=== PATIENT | female | born 1985 | race Two or more races ===

== ENCOUNTER 2021-03-11 16:23 | Emergency (ER) | payer MEDICAID, OTHER ==
[2021-03-11] MEDS ORDERED: Sodium Chloride 0.9% 10 ML Syringe FLUSH PRN (16:48)
[2021-03-11] MEDS ORDERED: HYDROmorphone 1 MG/ML Syringe IVPUSH ONE (16:57)
[2021-03-11] MEDS ORDERED: Potassium Chloride 20 MEQ Tab.ER PO ONE (17:20)
[2021-03-11] MEDS ORDERED: Magnesium Sulfate/Water 2 GM in Premix Bag 1 BAG IV ONE (17:20)
[2021-03-11] MEDS: Potassium Chloride 10 MEQ in Premix Bag 1 BAG IV SCH ×4 (17:41→22:18)
--- NOTE | 2021-03-11 17:47 | EDM.PDOC ---
ED HPI GENERAL MEDICAL PROBLEM - General Chief Complaint: General Stated Complaint: LOW POTASSIUM Time Seen by Provider: 03/11/21 16:27 Source of Information: Reports: Patient, Provider History Limitations: Reports: No Limitations - History of Present Illness INITIAL COMMENTS - FREE TEXT/NARRATIVE: The patient was sent over from [facility] by Dr Olivares for low potassium. The patient was seeing Dr Olivares for a paracentesis. He took off about 4L until he found out what that her potassium was low at 2. He sent her over to get potassium. The patient is in renal failure from alcohol abuse. She still drinks daily but not as much. She says she has been hospitalized many times in the past few months. Her potassium was as low at 1.2 before. She has no fever, chills, cough, chest pain, shortness of breath, abdominal pain, nausea or vomiting. Onset: Gradual Duration: Day(s): Severity: Moderate Improves with: Reports: None Worsens with: Reports: None Associated Symptoms: Reports: No Other Symptoms Generalized Pain Score (Numeric/FACES): 7 - Related Data Allergies Allergy/AdvReac Type Severity Reaction Status Date / Time No Known Allergies Allergy Verified 03/11/21 16:48 Home Meds: Home Meds Gabapentin [Neurontin] 600 mg PO QID 03/11/21 [History] Metoprolol Succinate [[place] Sprinkle] 25 mg PO DAILY 03/11/21 [History] Potassium Chloride 20 meq PO DAILY #30 tablet.er 03/11/21 [Rx] oxyCODONE HCl/Acetaminophen [Percocet 5-325 mg Tablet] 1 each PO Q6H PRN 03/11/21 [History] Social & Family History - Tobacco Use Tobacco Use Status *Q: Never Tobacco User Second Hand Smoke Exposure: No - Alcohol Use Days Per Week of Alcohol Use: 7 Number of Drinks Per Day: 1 Total Drinks Per Week: 7 Date of Last Drink: 03/10/21 - Recreational Drug Use Recreational Drug Use: Yes Drug Use in Last 12 Months: Yes Recreational Drug Type: Reports: Marijuana/Hashish, Methamphetamine Recreational Drug Use Frequency: Daily ED ROS GENERAL - Review of Systems Review Of Systems: See Below Constitutional: Reports: No Symptoms HEENT: Reports: No Symptoms Respiratory: Reports: No Symptoms Cardiovascular: Reports: No Symptoms Endocrine: Reports: No Symptoms GI/Abdominal: Reports: No Symptoms : Reports: No Symptoms Musculoskeletal: Reports: No Symptoms ED EXAM, GENERAL - Physical Exam Exam: See Below Exam Limited By: No Limitations General Appearance: Alert, No Apparent Distress Ears: Normal External Exam Nose: Normal Inspection Head: Atraumatic, Normocephalic Neck: Normal Inspection Respiratory/Chest: No Respiratory Distress, Lungs Clear, Normal Breath Sounds Cardiovascular: Regular Rate, Rhythm, No Edema, No Murmur GI/Abdominal: Soft, Non-Tender, No Organomegaly, No Mass Back Exam: Normal Inspection Extremities: Normal Inspection Neurological: Alert, Oriented, No Motor/Sensory Deficits #1 Interpretation EKG Date: 03/11/21 Time: 17:12 Rhythm: NSR Rate (Beats/Min): 96 [place] Path: Normal P-Wave: Present QRS: Normal ST-T: Other (Flattened T waves in multiple leads) QT: Prolonged Course - Vital Signs Last Recorded V/S: Last Vital Signs Temp 97 F 03/11/21 16:41 Pulse 102 H 03/11/21 16:41 Resp 16 03/11/21 16:41 BP 120/70 03/11/21 16:41 Pulse Ox 100 03/11/21 16:41 - Orders/Labs/Meds Orders: Active Orders 24 hr Category Date Time Status Cardiac Monitoring [RC] . DIRECTED Care 03/11/21 16:48 Active Peripheral IV Care [RC] . DIRECTED Care 03/11/21 16:49 Active Potassium Chloride [KCl in Water 10 MEQ/100 ML] 10 meq Med 03/11/21 17:30 Active Premix Bag 1 bag IV Q1H Sodium Chloride 0.9% [Saline Flush] Med 03/11/21 16:48 Active 10 ml FLUSH ASDIRECTED PRN Peripheral IV Insertion Adult [OM.PC] Stat Oth 03/11/21 16:48 Ordered Medication Orders Potassium Chloride 10 meq/ (Premix) 100 mls @ 100 mls/hr IV Q1H MONAE Stop: 03/11/21 21:29 Last Admin: 03/11/21 18:43 Dose: 100 mls/hr Documented by: Infusion: 03/11/21 18:41 Dose: 100 mls/hr Documented by: Admin: 03/11/21 17:41 Dose: 100 mls/hr Documented by: ANURAG Sodium Chloride (Sodium Chloride 0.9% 10 Ml Syringe) 10 ml FLUSH ASDIRECTED PRN PRN Reason: Keep Vein Open Last Admin: 03/11/21 17:40 Dose: 10 ml Documented by: ANURAG Labs: Laboratory Tests 03/11/21 03/11/21 Range/Units 16:44 16:48 WBC 15.24 H (3.98-10.04) K/mm3 RBC 3.16 L (3.98-5.22) M/mm3 Hgb 9.8 L (11.2-15.7) gm/dl Hct 30.8 L (34.1-44.9) % MCV 97.5 H (79.4-94.8) fl MCH 31.0 (25.6-32.2) pg MCHC 31.8 L (32.2-35.5) g/dl RDW Std Deviation 65.7 H (36.4-46.3) fL Plt Count 223 (182-369) K/mm3 MPV 10.7 (9.4-12.3) fl Neut % (Auto) 73.6 H (34.0-71.1) % Lymph % (Auto) 17.5 L (19.3-51.7) % [place] % (Auto) 7.5 (4.7-12.5) % Eos % (Auto) 0.7 (0.7-5.8) Baso % (Auto) 0.4 (0.1-1.2) % Neut # (Auto) 11.22 H (1.56-6.13) K/mm3 Lymph # (Auto) 2.66 (1.18-3.74) K/mm3 [place] # (Auto) 1.15 H (0.24-0.36) K/mm3 Eos # (Auto) 0.11 (0.04-0.36) K/mm3 Baso # (Auto) 0.06 (0.01-0.08) K/mm3 Manual Slide Review Abnormal smear Sodium 142 (136-145) mEq/L Potassium 1.9 L* (3.5-5.1) mEq/L Chloride 103 (98-107) mEq/L Carbon Dioxide 29 (21-32) mEq/L Anion Gap 11.9 (5-15) BUN 4 L (7-18) mg/dL Creatinine 1.3 H (0.55-1.02) mg/dL Est Cr Clr Drug Dosing 64.07 mL/min Estimated GFR (MDRD) 46 (>60) mL/min BUN/Creatinine Ratio 3.1 L (14-18) Glucose 96 (70-99) mg/dL Calcium 7.9 L (8.5-10.1) mg/dL Phosphorus 2.2 L (2.6-4.7) mg/dL Magnesium 1.4 L (1.8-2.4) mg/dL Total Bilirubin 2.3 H (0.2-1.0) mg/dL AST 100 H (15-37) U/L ALT 32 (14-59) U/L Alkaline Phosphatase 206 H (46-116) U/L Total Protein 7.5 (6.4-8.2) g/dl Albumin 2.0 L (3.4-5.0) g/dl Globulin 5.5 gm/dL Albumin/Globulin Ratio 0.4 L (1-2) Meds: Medications Generic Name Dose Route Start Last Admin Trade Name Freq PRN Reason Stop Dose Admin Potassium Chloride 10 meq/ 100 mls @ 100 mls/hr 03/11/21 17:30 03/11/21 18:43 Premix IV 03/11/21 21:29 100 mls/hr Q1H MONAE Administration Sodium Chloride 10 ml 03/11/21 16:48 03/11/21 17:40 Sodium Chloride 0.9% 10 Ml Syringe FLUSH 10 ml ASDIRECTED PRN Administration Keep Vein Open Discontinued Medications Generic Name Dose Route Start Last Admin Trade Name Freq PRN Reason Stop Dose Admin Hydromorphone HCl 1 mg 03/11/21 16:57 03/11/21 17:36 Hydromorphone 1 Mg/Ml Syringe IVPUSH 03/11/21 16:58 1 mg ONETIME ONE Administration Magnesium Sulfate 2 gm/ Premix 50 mls @ 25 mls/hr 03/11/21 17:20 03/11/21 17:42 IV 03/11/21 19:19 25 mls/hr ONETIME ONE Administration Potassium Chloride 40 meq 03/11/21 17:20 03/11/21 17:42 Potassium Chloride 20 Meq Tab.Er PO 03/11/21 17:21 40 meq ONETIME ONE Administration - Re-Assessments/Exams Free Text/Narrative Re-Assessment/Exam: 03/11/21 17:49 I ordered an IV saline lock, EKG, dilaudid and labs. Her EKG shows NSR with no acute changes. 03/11/21 19:38 Her WBC was elevated at 15.4. Her Hgb was low at 9.8. Her K was very low at 1.9. Her creatinine was elevated at 1.3. Her magnesium was low at 1.4. Her AST was 100. I ordered potassium chloride 40meq PO and 40meq IV. I also ordered magnesium 2 grams. I will give her some more dilaudid and discharge her on some oral potassium. Departure - Departure Time of Disposition: 19:45 Disposition: Home, Self-Care 01 Condition: Good Clinical Impression: Hyponatremia Abdominal ascites Qualifiers: Ascites type: due to alcoholic hepatitis Qualified Code(s): K70.11 - Alcoholic hepatitis with ascites - Discharge Information *PRESCRIPTION DRUG MONITORING PROGRAM REVIEWED*: Not Applicable *COPY OF PRESCRIPTION DRUG MONITORING REPORT IN PATIENT EULALIA: Not Applicable Prescriptions: Potassium Chloride 20 meq PO DAILY #30 tablet.er Referrals: Kavitha Farrell [facility] [Primary Care Provider] - 1 Week Forms: ED Department Discharge Additional Instructions: Take your medications as prescribed. Take the potassium daily. Follow up with your doctor on Monday or Monday. Please return if you are worse. Sepsis Event Note (ED) - Evaluation Sepsis Screening Result: No Definite Risk - Focused Exam Vital Signs: Vital Signs Temp Pulse Resp BP Pulse Ox 03/11/21 16:41 97 F 102 H 16 120/70 100 - My Orders Last 24 Hours: My Active Orders 03/11/21 16:48 Cardiac Monitoring [RC] . DIRECTED Sodium Chloride 0.9% [Saline Flush] 10 ml FLUSH ASDIRECTED PRN Peripheral IV Insertion Adult [OM.PC] Stat 03/11/21 16:49 Peripheral IV Care [RC] . DIRECTED 03/11/21 17:30 Potassium Chloride [KCl in Water 10 MEQ/100 ML] 10 meq Premix Bag 1 bag IV Q1H - Assessment/Plan Last 24 Hours: My Active Orders 03/11/21 16:48 Cardiac Monitoring [RC] . DIRECTED Sodium Chloride 0.9% [Saline Flush] 10 ml FLUSH ASDIRECTED PRN Peripheral IV Insertion Adult [OM.PC] Stat 03/11/21 16:49 Peripheral IV Care [RC] . DIRECTED 03/11/21 17:30 Potassium Chloride [KCl in Water 10 MEQ/100 ML] 10 meq Premix Bag 1 bag IV Q1H
[2021-03-11] MEDS ORDERED: HYDROmorphone 0.5 MG/0.5 ML Syringe IVPUSH ONE (19:40)
[2021-03-11] MEDS ORDERED: Sodium Chloride 0.9% 1,000 ML IV SCH (19:45)
== END 2021-03-11 23:04 | disposition home or self-care (01) ==
LOC: JD.ED 16:23
DX: K70.11 Alcoholic hepatitis with ascites (principal); E87.1 Hypo-osmolality and hyponatremia
CPT/HCPCS: 36415; 80053; 83735; 84100; 85025; 93005; 96365; 96366; 96368; 96375; 96376; 99285; A9270; J1170; J3475; J3480; J7030